=== PATIENT | female | born 2005 ===

== ENCOUNTER 2024-03-22 14:03 | Emergency (ER) | payer BC ==
[2024-03-22] MEDS ORDERED: dexAMETHasone 4 MG TAB ONE (15:05)
[2024-03-22] MEDS ORDERED: HYDROcodone/APAP 7.5-325MG 1 EACH TAB ONE (15:06)
[2024-03-22] MEDS ORDERED: CYCLOBENZAPRINE 5 MG TAB ONE (15:07)
[2024-03-22] MEDS ORDERED: NAPROXEN 250 MG TAB ONE (15:07)
[2024-03-22] MEDS ORDERED: ACET/COD 300 MG/30 MG STARTER PACK 6 TAB BTL PO ONE (16:36)
[2024-03-22] MEDS ORDERED: CYCLOBENZAPRINE 10MG STARTER 3 TAB BTL ONE (16:36)
--- NOTE | 2024-04-23 06:30 | XR ---
Patient Joyce العلي ID [id number] Order # EXAMINATION TYPE: XR cervical spine trauma DATE OF EXAM: 03/22/2024 COMPARISON: No comparison available on downtime PACS. HISTORY: Neck pain TECHNIQUE: 5 views cervical spine FINDINGS: Prevertebral space is normal. Posterior spinal lamellar line is intact. Vertebral body heig hts are preserved. Disc heights are preserved. Alignment is preserved. Foramen are patent. Odontoid i s unremarkable. There is some overlying occiput. IMPRESSION: 1. No acute osseous abnormality identified 5 view cervical spine
== END 2024-03-22 16:45 | disposition home or self-care (01) ==
LOC: EC 14:03
CPT/HCPCS: 72050; 99283

== ENCOUNTER 2024-07-23 20:36 | Emergency (ER) | payer OTHER ==
[2024-07-23 20:50] VITALS: TEMP 98.4
--- NOTE | 2024-07-23 21:26 | XR ---
EXAMINATION TYPE: XR chest 2V DATE OF EXAM: 07/23/2024 9:15 PM COMPARISON: None. CLINICAL INDICATION: Female, 18 years old with history of cough, TECHNIQUE: Frontal and lateral views of the chest are obtained. FINDINGS: There is no focal air space opacity, pleural effusion, or pneumothorax seen. The cardiac silhouette size is within normal limits. The osseous structures are intact. IMPRESSION: No acute cardiopulmonary process. [facility], , 07/23/2024 9:24 PM
[2024-07-23] MEDS: AZITHROMYCIN 500 MG TAB PO STA (22:00)
--- NOTE | 2024-07-23 22:00 | ED ---
General Adult HPI - General Chief complaint: Upper Respiratory Infection Stated complaint: Cough, SOB Time Seen by Provider: 07/23/24 21:25 Source: patient, RN notes reviewed, old records reviewed Mode of arrival: ambulatory Limitations: no limitations - History of Present Illness Initial comments: Patient is a 18-year-old female presents emergency department for upper respiratory symptoms. Has been having congestion, nonproductive cough for the last week and a half. No significant sore throat. Mild nasal congestion. No fevers. No known sick contacts. No nausea or vomiting. No diarrhea. Patient is a chronic tobacco user. Presents for further evaluation at this time. Denies chest pain. - Related Data Previous Rx's Medication Instructions Recorded Albuterol Inhaler [Ventolin Hfa 1 puff INHALATION QID #8 gm 07/23/24 Inhaler] Azithromycin [Zithromax] 250 mg PO DAILY 4 Days #4 tab 07/23/24 predniSONE [Deltasone] 20 mg PO BID 5 Days #10 tab 07/23/24 Allergies Allergy/AdvReac Type Severity Reaction Status Date / Time No Known Allergies Allergy Verified 07/23/24 20:48 Review of Systems ROS Statement: Those systems with pertinent positive or pertinent negative responses have been documented in the HPI. Review of Systems: CONST: Denies fever EYES: Denies blurry vision ENT: Endorses nasal congestion C/V: Denies Chest pain RESP: Denies shortness of breath GI: Denies abdominal pain : Denies dysuria SKIN: Denies rash. MSK: Denies joint pain. NEURO: Denies headache ROS Other: All systems not noted in ROS Statement are negative. Past Medical History Past Medical History: No Reported History History of Any Multi-Drug Resistant Organisms: None Reported Past Surgical History: No Surgical Hx Reported Past Psychological History: No Psychological Hx Reported Smoking Status: Vaper Past Alcohol Use History: Occasional Past Drug Use History: None Reported General Exam - General Exam Comments Initial Comments: General: Appears in no acute distress. HEAD: Normal with no signs of head trauma. EYES: EOMI ENT: Hearing grossly intact, normal oropharynx. RESPIRATORY: Clear breath sounds bilaterally. No wheezes, rales, or rhonchi. No hypoxia. No increased work of breathing. C/V: Regular rate and rhythm. S1 and S2 auscultated, peripheral pulses 2+ and intact throughout ABD: Abd is soft, nontender, nondistended EXT: Normal range of motion, no obvious deformity SKIN: No rashes or lesions observed on exposed skin. NEURO: Alert and oriented x 4. Limitations: no limitations Course Vital Signs 07/23/24 20:48 Temperature 98.4 F Pulse Rate 94 Respiratory 16 Rate Blood Pressure 119/71 O2 Sat by Pulse 100 Oximetry Medical Decision Making - Medical Decision Making Was pt. sent in by a medical professional or institution (, [facility], STUDENT FINANCIAL SERVICES COUNSELOR, urgent care, hospital, or long-term...) When possible be specific @ -No Did you speak to anyone other than the patient for history (EMS, parent, family, police, friend...)? What history was obtained from this source @ -No Did you review nursing and triage notes (agree or disagree)? Why? @ -I reviewed and agree with nursing and triage notes Were old charts reviewed (outside hosp., previous admission, EMS record, old EKG, old radiological studies, urgent care reports/EKG's, long-term records)? Report findings @ -No old charts were reviewed Differential Diagnosis (chest pain, altered mental status, abdominal pain women, abdominal pain men, vaginal bleeding, weakness, fever, dyspnea, syncope, headache, dizziness, GI bleed, back pain, seizure, CVA, palpatations, mental health, musculoskeletal)? @ -COVID, flu, RSV, tracheobronchitis. This list is not all inclusive. EKG interpreted by me (3pts min.). @ -None done X-rays interpreted by me (1pt min.). @ -Chest x-ray reveals no obvious acute cardiopulmonary process. CT interpreted by me (1pt min.). @ -None done U/S interpreted by me (1pt. min.). @ -None done What testing was considered but not performed or refused? (CT, X-rays, U/S, labs)? Why? @ -None What meds were considered but not given or refused? Why? @ -None Did you discuss the management of the patient with other professionals (professionals i.e. [facility] Caballero, STUDENT FINANCIAL SERVICES COUNSELOR, lab, RT, psych nurse, protective services social worker, government documents librarian, teacher, gunnery/ordnance officer, comp field case manager)? Give summary @ -No Was smoking cessation discussed for >3mins.? @ -yes Was critical care preformed (if so, how long)? @ -No Were there social determinants of health that impacted care today? How? (Homelessness, low income, unemployed, alcoholism, drug addiction, transportation, low edu. Level, literacy, decrease access to med. care, intermediate, rehab)? @ -No Was there de-escalation of care discussed even if they declined (Discuss DNR or withdrawal of care, Hospice)? DNR status @ -No What co-morbidities impacted this encounter? (DM, HTN, Smoking, COPD, CAD, Cancer, CVA, ARF, Chemo, Hep., AIDS, mental health diagnosis, sleep apnea, morbid obesity)? @ -None Was patient admitted / discharged? Hospital course, mention meds given and route, prescriptions, significant lab abnormalities, going to OR and other pertinent info. @ -Based on the patient's presentation and physical exam, presents with cough for a week and a half. We will obtain viral swabs, chest x-ray. Patient will be administered a dose of a steroid. Viral swabs returned negative. Vital signs are within acceptable limits. Chest x-ray showed no evidence of pneumonia. Discussed results with patient. Likely tracheobronchitis considering her smoking history. She will be given a Z-Lawson and given a dose of azithromycin prior to discharge as well as a prescription for azithromycin, prednisone, albuterol inhaler. Strict return precautions discussed. Discussed smoking cessation. Patient was in agreement this plan. I instructed the patient to follow up with their PCP in the next 1-3 day. I explained that the patient should return to the emergency department if they experience any worsening symptoms. Strict return precautions were discussed with the patient. The patient expressed understanding of these instructions. I answered all questions that the patient had. The patient was discharged home in good condition with their prescriptions and follow up information. Undiagnosed new problem with uncertain prognosis? @ -No Drug Therapy requiring intensive monitoring for toxicity (Heparin, Nitro, Insulin, Cardizem)? @ -No Were any procedures done? @ -No Diagnosis/symptom? @ -Tracheobronchitis, Nicotine dependence Acute, or Chronic, or Acute on Chronic? @ -Acute Uncomplicated (without systemic symptoms) or Complicated (systemic symptoms)? @ -Uncomplicated Side effects of treatment? @ -No Exacerbation, Progression, or Severe Exacerbation? @ -No Poses a threat to life or bodily function? How? (Chest pain, [place], [place], pneumonia, PE, COPD, DKA, ARF, appy, cholecystitis, CVA, Diverticulitis, Homicidal, Suicidal, threat to staff... and all critical care pts) @ -Unlikely at this time - Lab Data Lab Results 07/23/24 Range/Units 20:52 Influenza Type A (PCR) Not Detected (Not Detectd) Influenza Type B (PCR) Not Detected (Not Detectd) RSV (PCR) Not Detected (Not Detectd) SARS-CoV-2 (PCR) Not Detected (Not Detectd) Disposition Clinical Impression: Tracheobronchitis, Nicotine dependence Disposition: HOME SELF-CARE Condition: Good Instructions (If sedation given, give patient instructions): Acute Bronchitis (ED) Prescriptions: predniSONE [Deltasone] 20 mg PO BID 5 Days #10 tab Albuterol Inhaler [Ventolin Hfa Inhaler] 1 puff INHALATION QID #8 gm Azithromycin [Zithromax] 250 mg PO DAILY 4 Days #4 tab Is patient prescribed a controlled substance at d/c from ED?: No Referrals: None,Stated [Primary Care Provider] - 1-2 days Time of Disposition: 22:00
[2024-07-23] MEDS: predniSONE 20 MG TAB PO STA (22:01)
[2024-07-23 22:04] VITALS: BP 125/85; PULSE 95; RESP 18
== END 2024-07-23 22:07 | disposition home or self-care (01) ==
LOC: EC 20:36
DX: J40 Bronchitis, not specified as acute or chronic (principal); F17.290 Nicotine dependence, other tobacco product, uncomplicated
CPT/HCPCS: 87636; 71046; 99285; 99406; J7512